=== PATIENT | female | born 1965 | race Caucasian/White ===

== ENCOUNTER 2021-01-17 10:26 | Emergency (ER) | payer OTHER ==
[~2021-01-17] VITALS: Ht 157.5 cm; Wt 90.7 kg
[2021-01-17 11:02] VITALS: BP 113/72
--- NOTE | 2021-01-17 11:10 | NUR ---
BIB SELF C/O 02/19 WHOLE CHEST PAIN, DIZZINESS, HEART PALPITATION, MORSE, BODY ACHE X 1 WEEK. COVID TESTED POSITIVE 05/18/20. PMH:HLD, ANXIETY, OVARIAN SURGEY
[2021-01-17] MEDS ORDERED: KETOROLAC 30 MG/ML VIAL IM ONE (16:20)
[2021-01-17 16:31] LABS: BASOPHILS % (AUTO) 0.5 % (0.0-2.0); EOSINOPHILS # (AUTO) 0.2 K/uL (0-0.4); EOSINOPHILS % (AUTO) 2.6 % (0.0-4.0); HEMATOCRIT 39.6 % (36-48); HEMOGLOBIN 13.3 g/dL (12.0-16.0); LYMPHOCYTES # (AUTO) 3.1 K/uL (2.5-16.5); LYMPHOCYTES % (AUTO) 35.6 % (20.5-51.1); MEAN CORPUSCULAR HEMOGLOBIN 30 pg (27-31); MEAN CORPUSCULAR HGB CONC 34 g/dL (33-37); MEAN CORPUSCULAR VOLUME 89.9 fL (80-94); MONOCYTES # (AUTO) 0.9 K/uL (0.8-1.0); MONOCYTES % (AUTO) 10.4 % (1.7-9.3); NEUTROPHILS # (AUTO) 4.4 K/uL (1.8-7.7); NEUTROPHILS % (AUTO) 50.9 % (42.2-75.2); PLATELET COUNT (AUTO) 257 K/uL (140-450); RED CELL DISTRIBUTION WIDTH 13.6 % (11.6-13.7); WHITE BLOOD COUNT (AUTO) 8.6 K/uL (4.8-10.8)
[2021-01-17 16:53] LABS: ALBUMIN 3.9 g/dL (3.4-5.0); ANION GAP 8.5 (8-16); CARBON DIOXIDE 31.4 mmol/L (21-32); POTASSIUM 3.9 mmol/L (3.5-5.1); THYROID STIMULATING HORMONE 2.77 uIU/mL (0.34-3.74); TOTAL BILIRUBIN 0.3 mg/dL (0.0-1.0)
[2021-01-17 17:52] VITALS: BP 126/79
--- NOTE | 2021-01-17 17:53 | NUR ---
Patient discharged with v/s stable. Written and verbal after care instructions ABOUT CHEST PAIN OBSERVATION given and explained. Patient verbalized understanding. Ambulatory with steady gait. All questions addressed prior to discharge. Advised to follow up with PMD.
== END 2021-01-17 17:53 | disposition home or self-care (01) ==
LOC: MED 10:26
DX: R07.9 Chest pain, unspecified (principal); M79.10 Myalgia, unspecified site; R53.83 Other fatigue; R51.9 Headache, unspecified; Z88.0 Allergy status to penicillin
CPT/HCPCS: 36415; 71045; 80053; 84443; 84484; 85025; 93005; 96372; 99285; J1885

== ENCOUNTER 2021-08-09 17:48 | Emergency (ER) | payer OTHER ==
[~2021-08-09] VITALS: Ht 157.5 cm; Wt 88.5 kg
[2021-08-09 18:03] VITALS: BP 126/80
--- NOTE | 2021-08-09 18:12 | NUR ---
Patient ambulated to bed 9.
[2021-08-09] MEDS ORDERED: diphenhydrAMINE 50 MG/ML VIAL IVP ONE (18:30)
[2021-08-09] MEDS ORDERED: METOCLOPRAMIDE 10 MG/2 ML INJ VIAL IVP ONE (18:30)
[2021-08-09] MEDS ORDERED: KETOROLAC 30 MG/ML VIAL IVP ONE (18:30)
[2021-08-09] MEDS ORDERED: NACL 0.9% 1,000 ML IV ONE (18:30)
--- NOTE | 2021-08-09 18:35 | NUR ---
56 Y/O F AMBULATED TO BED 9 WITH STEADY GAIT, C/O MORSE, WEAKNESS, BLURRED VISION ALLERGIES: PCN PMHx: HTN, HLD Sx: Overy removal
[2021-08-09 18:59] LABS: BASOPHILS # (AUTO) 0.1 K/uL (0.00-0.22); BASOPHILS % (AUTO) 0.7 % (0.0-2.0); EOSINOPHILS # (AUTO) 0.2 K/uL (0-0.4); EOSINOPHILS % (AUTO) 2.5 % (0.0-4.0); HEMATOCRIT 40.7 % (36-48); HEMOGLOBIN 14.2 g/dL (12.0-16.0); LYMPHOCYTES # (AUTO) 2.9 K/uL (2.5-16.5); LYMPHOCYTES % (AUTO) 32.8 % (20.5-51.1); MEAN CORPUSCULAR HEMOGLOBIN 31 pg (27-31); MEAN CORPUSCULAR HGB CONC 35 g/dL (33-37); MEAN CORPUSCULAR VOLUME 89.1 fL (80-94); MONOCYTES # (AUTO) 0.6 K/uL (0.8-1.0); PLATELET COUNT (AUTO) 444 K/uL (140-450); RED BLOOD CELL COUNT(AUTO) 4.57 MIL/uL (4.20-5.40); WHITE BLOOD COUNT (AUTO) 8.7 K/uL (4.8-10.8)
[2021-08-09] MEDS ORDERED: NAPR-54 PO (19:01)
--- NOTE | 2021-08-09 19:13 | NUR ---
everette from lab stated blood is hemolyzed, stated he will cancel the labs.
--- NOTE | 2021-08-09 19:16 | NUR ---
REPORT RECEIVED FROM STEFFANIE KEITH
--- NOTE | 2021-08-09 19:16 | NUR ---
Pt report given to VAIBHAV AUGUSTINE. Transfer of care at this time.
[2021-08-09 19:22] VITALS: BP 134/75
--- NOTE | 2021-08-09 19:22 | NUR ---
Patient discharged with v/s stable. Written and verbal after care instructions given on Migraine and explained. Patient alert, oriented and verbalized understanding of instructions. Ambulatory with steady gait. All questions addressed prior to discharge. ID band removed. Patient advised to follow up with PMD. Rx of Naproxen given.
--- NOTE | 2021-08-09 19:22 | NUR ---
The patient's care was reviewed and supervised by Olena Casey RN.
== END 2021-08-09 19:22 | disposition home or self-care (01) ==
LOC: MED 17:48
DX: R51.9 Headache, unspecified (principal); Z88.0 Allergy status to penicillin; Z79.899 Other long term (current) drug therapy
CPT/HCPCS: 36415; 81002; 81025; 85025; 96374; 96375; 99284; J1200; J1885; J2765; J7030; 96361

== ENCOUNTER 2022-08-20 08:55 | Day surgery (SDC) | payer OTHER ==
[~2022-08-20] VITALS: Ht 157.5 cm; Wt 90.7 kg
[~2022-08-20 08:55] MED LIST: NAPR-54 PO
[2022-08-20] MEDS ORDERED: fentaNYL citrate 0.05 MG/ML VIAL ONE (11:17)
[2022-08-20] MEDS ORDERED: LIDOCAINE 2% 100 MG/5 ML UJET TP ONE (11:18)
[2022-08-20] MEDS ORDERED: MIDAZOLAM 2 MG/2 ML VIAL ONE (11:18)
[2022-08-20] MEDS ORDERED: fentaNYL citrate 0.05 MG/ML VIAL IVP ONE (11:55)
[2022-08-20] MEDS ORDERED: MIDAZOLAM 2 MG/2 ML VIAL IVP ONE (11:55)
== END 2022-08-20 12:35 | disposition home or self-care (01) ==
LOC: MMU 08:55 → MDS 08:55
PROVIDERS: ATTEND Internal Medicine Gastroenterology
DX: Z12.11 Encounter for screening for malignant neoplasm of colon (principal); K21.9 Gastro-esophageal reflux disease without esophagitis; I10 Essential (primary) hypertension; E78.5 Hyperlipidemia, unspecified; F41.9 Anxiety disorder, unspecified; Z90.49 Acquired absence of other specified parts of digestive tract; Z88.0 Allergy status to penicillin; Z79.899 Other long term (current) drug therapy; Z20.822 Contact with and (suspected) exposure to COVID-19
CPT/HCPCS: 43235; 45378; 87426; J2250; J3010